=== PATIENT | male | born 1955 | race Caucasian/White ===

== ENCOUNTER 2018-01-30 08:45 | Day surgery (SDC) | payer MEDICARE, BC ==
[~2018-01-30] VITALS: Ht 180.3 cm; Wt 138.3 kg
[~2018-01-30 08:45] MED LIST: 24 HOUR ALLERG9.9 ML; ALL DAY ALLERGY10 M3 PO; BENADRYL25 MG PO; BUTALB-ACETAMI1 EACH PO; CEFUROXIME500 MG PO; DULOXETINE; DULOXETINE HCL60 MG PO; FLUOXETINE HCL60 MG PO; FUROSEMIDE20 MG PO; GABAPENTIN600 MG PO; K-TAB10 MEQ PO; LOSARTAN-HCTZ1 EAC1 PO; METHOCARBAMOL750 MG PO; NABUMETONE750 MG PO; PERCOCET 7.5-31 EACH PO; POTASSIUM CHLO20 ME1 PO; POTASSIUM CHLO20 ME2 PO; SYNTHROID200 MCG PO; SYNTHROID25 MCG PO; TYLENOL #4 PO; TYLENOL WITH C1 EAC1 PO; VITAMIN D31000 UNI1 PO; WELLBUTRIN XL300 MG PO
--- NOTE | 2018-01-30 12:22 | NUR ---
ICED WATER GIVEN. CALL LIGHT W/IN REACH.
[2018-01-30] MEDS ORDERED: KEFLEX500 MG PO (12:29)
--- NOTE | 2018-01-30 12:32 | NUR ---
01/30/18 1232 Nesha Valderrama 1128 PT ARRIVED IN PACU WIDE AWAKE COUGHING. 1133 ALBUTEROL NEB TX STARTED. PT COUGHING CONTINUOUSLY DURING THE TX. 1138 NEB TX DONE. PT ON RA WITH SATS 96%. PT COUGHING UP RED TINGED SPUTUM INTO KLEENEX. ANESTHESIA AT BEDSIDE WITH NO NEW ORDERS. 1150 PT STATES "I FEEL LIKE I'M DROWNING AND MIGHT PASS OUT FROM COUGHING, EVEN THOUGH THIS IS MY EVERYDAY ROUTINE." O2 AT 6L MASK ON PER PT COMFORT. SATS 100%. COUGHING CONTINUOUSLY. TC TO ANESTHESIA. 1200 ANESTHESIA AT BEDSIDE. COUGH DROP GIVEN TO PT. 1205 PT ONLY COUGHING OCC AFTER COUGH DROP GIVEN. OXGYEN REMOVED WITH SATS 95% ON RA. DRIP PAD CHANGED. 1215 TO DS WITH NO C/O'S.
--- NOTE | 2018-01-30 13:35 | NUR ---
LE 1325: PT UP TO BR W/RN STANDBY. PT AMBULATES WELL AND DENIES DIZZINESS. PT VOIDS AND REQ DC HOME. DC INSTRUCTIONS ARE GIVEN AND HE VERBALIZES UNDERSTANDING. PT DRESSES HIMSELF AND TRANSFERS HIMSELF TO WC AND PERSONAL VEHICLE AND DOES THAT WELL.
--- NOTE | 2018-02-06 14:26 | OR ---
[facility] [address] [place], [place] [address] Signed DATE OF OPERATION: 01/30/2018 SURGEON: Ernesto Saenz MD PREOPERATIVE DIAGNOSIS: Allergic rhinitis with inferior turbinate hypertrophy. POSTOPERATIVE DIAGNOSIS: Allergic rhinitis with inferior turbinate hypertrophy. PROCEDURES PERFORMED: Bilateral cautery submucosal inferior turbinates. ANESTHESIA: General orotracheal, CASINO ATTENDANT, [place]. PREOPERATIVE HISTORY: Mr. Gagnon is a 62-year-old male with a long history of nasal allergies, drainage, congestion, sore throat, cough, unresponsive to appropriate medications. He was taken to the operating room for the above-mentioned procedure. OPERATIVE PROCEDURE AND FINDINGS: After informed consent, the patient was taken to the operating room, placed in supine position, where a general orotracheal anesthesia was induced. The patient's procedures were verified. The patient received preoperative intranasal oxymetazoline and intravenous Ancef. Headlight speculum exam of the nasal cavity showed decongested inferior turbinates, baseline fairly hypertrophic. The left side was approached first. Headlight nasal speculum with a long handle needle point cautery, multiple submucosal passes on the inferior turbinate starting anteriorly extending all the way back posteriorly on the medial and inferior surface of the inferior turbinate. Excellent shrinkage in decongestion and improvement in the nasal airway was obtained. Same procedure on the right inferior turbinate. Bleeding was minimal, stopped, afterwards packing was placed. Equal amount of trimmed Merocel one piece each side coated with Neosporin, tied anteriorly over a pad. The pharynx was suctioned clear of blood secretions. The patient was then awakened, extubated, and transported to the recovery room in good condition. No complications. Blood loss minimal. No specimen. No drains. Packing one piece of Merocel each nostril. Electronically Signed By: ERNESTO SAENZ MD 02/06/18 1426 PATIENT NAME: DANY GAGNON OPERATIVE REPORT DATE OF : 53 REPORT #: [id number] PHYSICIAN: ERNESTO SAENZ MD PCP: ALINE CASTANEDA MD REPORT IS CONFIDENTIAL AND NOT TO BE RELEASED WITHOUT AUTHORIZATION [address] [place], [place] [address] Signed Ernesto Saenz MD GC/PRANAVL /[id number] Copies: ~ Electronically Signed By: ERNESTO SAENZ MD 02/06/18 1426 PATIENT NAME: DANY GAGNON OPERATIVE REPORT DATE OF : 53 REPORT #: [id number] PHYSICIAN: ERNESTO SAENZ MD PCP: ALINE CASTANEDA MD REPORT IS CONFIDENTIAL AND NOT TO BE RELEASED WITHOUT AUTHORIZATION
== END 2018-01-30 13:30 | disposition home or self-care (01) ==
LOC: OPS 08:45 → DS 08:45 → OPS 10:15 → DS 10:45 → OPS 13:30
PROVIDERS: Otolaryngology
PROC: 095L7ZZ Destruction of Nasal Turbinate, Via Natural or Artificial Opening (ICD-10-PCS; principal; 2018-01-30 10:15)
DX: J34.3 Hypertrophy of nasal turbinates (principal); J30.9 Allergic rhinitis, unspecified; I10 Essential (primary) hypertension; J44.9 Chronic obstructive pulmonary disease, unspecified; K58.9 Irritable bowel syndrome, unspecified; E78.00 Pure hypercholesterolemia, unspecified; G47.33 Obstructive sleep apnea (adult) (pediatric); Z79.52 Long term (current) use of systemic steroids; Z79.899 Other long term (current) drug therapy
CPT/HCPCS: 94644; J0330; J0690; J2250; J2704; J3010; J7120

== ENCOUNTER 2018-04-24 07:15 | Day surgery (SDC) | payer MEDICARE, BC ==
[~2018-04-24] VITALS: Ht 180.3 cm; Wt 137.4 kg
[~2018-04-24 07:15] MED LIST changes: +KEFLEX500 MG PO
--- NOTE | 2018-04-24 09:41 | NUR ---
04/24/18 0941 Catalina Jean 0917 PT ARRIVED TO PACU DROWSY AND TALKING. PT DENIES PAIN AND NAUSEA. PEDIATRICIAN/MEDICAL DOCTOR REPORTS INCLUDED IRREGULAR HEART RHYTHM. EKG ORDERED BY MD, RT CALLED. PLAN OF CARE DISCUSSED WITH PT. RESP EVEN AND UNLABORED. 0983 RT AT BEDSIDE FOR EKG. PT MORE AWAKE AND ROLLED OVER TO SEMI FOWLERS.
--- NOTE | 2018-04-24 11:32 | OR ---
[facility] [address] [place], [place] [address] Signed DATE OF OPERATION: 04/24/2018 SURGEON: Sarah Young MD PREOPERATIVE DIAGNOSES: 1. Possible history of Terrell's esophagus. 2. Distal esophageal dysphagia. 3. Small hiatal hernia. 4. Crohn disease. 5. Diverticulosis. 6. Colonic polyps in 2001. POSTOPERATIVE DIAGNOSES: 1. Small hiatal hernia. 2. Moderate gastroduodenitis. 3. Minimal moderate sigmoid diverticulosis. 4. Seyqghp-sv-wqywsmrg internal hemorrhoids. 5. A 5 mm polyp at 45 cm. PROCEDURES: 1. EGD with CLOtest and biopsies of the duodenum, pyloric bulb, antrum, cardia/hiatal hernia and GE junction. 2. Colonoscopy with hot biopsy. ESTIMATED BLOOD LOSS: None. INDICATIONS: Jonn is a 63-year-old gentleman asked to see me for upper and lower endoscopy. He is known to have a small hiatal hernia since 2003, with a question of Terrell's esophagus. When I rechecked him, he actually looked pretty good. We did not see any obvious Terrell's esophagus. He is known to have a history of Crohn's disease. He is known to have diverticulosis. He said some around 2001, he had a colonic polyp removed over in [place], [place]. He tells me there is no family history of colon cancer or polyps. I had met with Jonn in the office and I gave him a pamphlet on upper and lower endoscopy. We discussed the nature of 2 tests along with the risks including, but not limited to gas bloating, crampy abdominal pain, bleeding, perforation, requiring surgery, and missed diagnosis. We also discussed the need for IV conscious sedation. He has done well with Versed and fentanyl in the past. He had expressed understanding and wish to proceed. Electronically Signed By: SARAH YOUNG MD 04/24/18 1132 PATIENT NAME: JONN GAGNON OPERATIVE REPORT DATE OF : 53 REPORT #: [id number] PHYSICIAN: SARAH YOUNG MD PCP: ALINE CASTANEDA MD REPORT IS CONFIDENTIAL AND NOT TO BE RELEASED WITHOUT AUTHORIZATION [facility] [address] [place], [place] [address] Signed DESCRIPTION OF PROCEDURE: Jonn was taken into our endoscopy suite and placed in the supine semi-recumbent position. He was given divided doses of 9 mg of Versed and 200 mcg of fentanyl. He was also given preoperative antibiotic because of his knee replacements. The posterior oropharynx was anesthetized with Hurricaine spray. A bite block was utilized for the case. The adult gastroscope was introduced and advanced out into the third portion of the duodenum under direct visualization of camera without difficulty. He had some erythematous changes in the duodenum and pyloric channel. We went ahead and took a biopsy of the duodenum and a pyloric channel. The stomach showed similar findings with patchy erythematous changes throughout. We saw no ulcerations. We took a biopsy of the antrum for CLOtest as well as pathologic review. Upon retroflexion of the scope, we can see has a small hiatal hernia. There were no gastric or esophageal varices. The scope was withdrawn up through the area of the GE junction, which in general was compliant without stricture. Although, he had some granulation tissue along the area of the Z-line. We went and took a couple of biopsies of that area. We also took a couple of biopsies inside the hiatal hernia itself. We saw no obvious Terrell's esophagus. No distal esophagitis. The middle and upper esophagus were unremarkable. After this, the gas was suctioned out and the gastroscope removed. Jonn tolerated the upper endoscopy quite well. Jonn was rotated into the left lateral decubitus position. He was maintained on IV sedation with Versed and fentanyl. A digital rectal exam was performed and this was unremarkable. The adult colonoscope was introduced and advanced all around into the cecum under direct visualization of camera without difficulty. His prep was good. Just a few areas of liquid particulate stool matter, most of that was irrigated and suctioned out. The scope was slowly withdrawn. Of course, we can see his diverticula. They were minimal to moderate in size, moderate in number, and scattered about in the sigmoid colon. He had a small polyp at 45 cm. It was easily removed with the help of hot biopsy forceps. Upon retroflexion of scope in the rectum, he does have obnmoux-cf-vgxumlsy internal hemorrhoid columns. After this, the gas was suctioned out and the colonoscope removed. Jonn tolerated the procedure quite well. RECOMMENDATIONS: I will see Jonn back in my office in 7 to 14 days to review his results. He might consider an H2 modesto or proton pump inhibitor for his stomach. Also Jonn is generally in quadrigeminy, but he would convert to bigeminy and he was not conducting the 2nd heartbeat. Consequently and rather than a heart rate of 80, he was down to heart rate of 40. We are going to check EKG in our recovery room. Electronically Signed By: SARAH YOUNG MD 04/24/18 1132 PATIENT NAME: JONN GAGNON OPERATIVE REPORT DATE OF : 53 REPORT #: [id number] PHYSICIAN: SARAH YOUNG MD PCP: ALINE CASTANEDA MD REPORT IS CONFIDENTIAL AND NOT TO BE RELEASED WITHOUT AUTHORIZATION [address] [place] [address] Signed Sarah Young MD [facility] /[id number] cc: MD Aline Deluna MD Copies: SARAH YOUNG MD, JONATHAN MD ~ Electronically Signed By: SARAH YOUNG MD 04/24/18 1132 PATIENT NAME: JONN GAGNON OPERATIVE REPORT DATE OF : 53 REPORT #: [id number] PHYSICIAN: SARAH YOUNG MD PCP: ALINE CASTANEDA MD REPORT IS CONFIDENTIAL AND NOT TO BE RELEASED WITHOUT AUTHORIZATION
--- NOTE | 2018-04-25 16:20 | EKG ---
[facility] [address] [facility] [place], [place] [address] Signed Normal sinus rhythm Normal ECG When compared with ECG of 29-JAN-2018 14:19, No significant change was found Confirmed by MANDO LEWIS DO ([id number]) on 04/25/2018 4:20:27 PM Electronically Signed By: MANDO LEWIS DO 04/25/18 1620 PATIENT NAME: DANY GAGNON KING Electrocardiogram DATE OF : 53 PHYSICIAN: MANDO LEWIS DO REPORT #: [id number] REPORT IS CONFIDENTIAL AND NOT TO BE RELEASED WITHOUT AUTHORIZATION
== END 2018-04-24 10:10 | disposition home or self-care (01) ==
LOC: OPS 07:15 → DS 07:15 → OPS 08:15 → DS 08:15 → OPS 10:10
PROVIDERS: Colon & Rectal Surgery
PROC: 0DB68ZX Excision of Stomach, Via Natural or Artificial Opening Endoscopic, Diagnostic (ICD-10-PCS; 2018-04-24)
PROC: 0DB48ZX Excision of Esophagogastric Junction, Via Natural or Artificial Opening Endoscopic, Diagnostic (ICD-10-PCS; 2018-04-24)
PROC: 0DBE8ZX Excision of Large Intestine, Via Natural or Artificial Opening Endoscopic, Diagnostic (ICD-10-PCS; 2018-04-24)
PROC: 0DB98ZX Excision of Duodenum, Via Natural or Artificial Opening Endoscopic, Diagnostic (ICD-10-PCS; principal; 2018-04-24 08:15)
PROC: 0DB78ZX Excision of Stomach, Pylorus, Via Natural or Artificial Opening Endoscopic, Diagnostic (ICD-10-PCS; 2018-04-24 08:15)
DX: Z12.11 Encounter for screening for malignant neoplasm of colon (principal); K63.5 Polyp of colon; K64.8 Other hemorrhoids; K29.80 Duodenitis without bleeding; K29.50 Unspecified chronic gastritis without bleeding; K21.0 Gastro-esophageal reflux disease with esophagitis; I10 Essential (primary) hypertension; J45.909 Unspecified asthma, uncomplicated; E78.5 Hyperlipidemia, unspecified; E87.6 Hypokalemia; E66.9 Obesity, unspecified; E03.9 Hypothyroidism, unspecified; F32.9 Major depressive disorder, single episode, unspecified; G47.30 Sleep apnea, unspecified; F43.10 Post-traumatic stress disorder, unspecified; J32.9 Chronic sinusitis, unspecified; Z86.010 Personal history of colon polyps; Z88.8 Allergy status to other drugs, medicaments and biological substances; Z68.41 Body mass index [BMI] 40.0-44.9, adult; Z79.899 Other long term (current) drug therapy
CPT/HCPCS: 86677; 88305; 93005; 93010; 99153; G0500; J2250; J3010; J7120

== ENCOUNTER 2020-04-21 15:02 | Emergency (ER) | payer MEDICARE, BC ==
[~2020-04-21] VITALS: Ht 180.3 cm; Wt 136.1 kg
[~2020-04-21 15:02] MED LIST changes: +BUPROPION XL300 MG PO
--- OUTSIDE RECORDS SUMMARY | 2020-04-21 15:06 | XMS ---
PreManage Notification: DANY GAGNON Security Assistant Housekeeping Manager Events No recent Security Events currently on file CRITERIA MET - [facility] PROVIDERS ALINE CASTANEDA [facility] 07/24/2018-Current PHONE: [phone] Crystal has no Care Guidelines for this patient. EMaxi VISIT COUNT (12 MO.) 1 NATALIE Guaman TOTAL 1 NOTE: Visits indicate total known visits. ED/UCC VISIT TRACKING (12 MO.) 04/21/2020 15:03 NATALIE Fang OR TYPE: Emergency COMPLAINT: - ABDOMINAL PAIN INPATIENT VISIT TRACKING (12 MO.) No inpatient visits to display in this time frame [email or web address]
[2020-04-21] MEDS ORDERED: FUROSEMIDE40 MG PO (15:23)
== END 2020-04-21 19:05 | disposition home or self-care (01) ==
LOC: ED 15:02
DX: K59.00 Constipation, unspecified (principal); I10 Essential (primary) hypertension; K50.90 Crohn's disease, unspecified, without complications; Z79.899 Other long term (current) drug therapy
CPT/HCPCS: 74018; 74176; 80053; 81001; 83690; 83735; 85025; 96361; 96374; 96375; 96376; 99284-25; J2270; J2405; J7030

== ENCOUNTER 2020-07-27 15:42 | Emergency (ER) | payer MEDICARE, BC ==
[~2020-07-27] VITALS: Ht 180.3 cm; Wt 136.1 kg
[~2020-07-27 15:42] MED LIST changes: +FUROSEMIDE40 MG PO
--- OUTSIDE RECORDS SUMMARY | 2020-07-27 15:44 | XMS ---
PreManage Notification: DANY GAGNON Security Industrial Servicer Events No recent Security Events currently on file CRITERIA MET - [facility] C[facility] PROVIDERS ALINE CASTANEDA [facility] 07/24/2018-Current PHONE: [phone] Crystal has no Care Guidelines for this patient. EMaxi VISIT COUNT (12 MO.) 2 NATALIE Guaman TOTAL 2 NOTE: Visits indicate total known visits. ED/UCC VISIT TRACKING (12 MO.) 07/27/2020 15:42 NATALIE Fang OR TYPE: Emergency COMPLAINT: - SOB 04/21/2020 15:03 NATALIE Fang OR TYPE: Emergency COMPLAINT: - ABDOMINAL PAIN DIAGNOSES: - Crohn's disease, unspecified, without complications - Other buttermaker helper (current) drug therapy - Constipation, unspecified - Essential (primary) hypertension - Constipation, unspecified INPATIENT VISIT TRACKING (12 MO.) No inpatient visits to display in this time frame [email or web address]
[2020-07-27] MEDS ORDERED: CELECOXIB200 MG PO (16:52)
[2020-07-27] MEDS ORDERED: PREDNISONE20 MG PO (19:32)
[2020-07-27] MEDS ORDERED: ZITHROMAX250 MG PO (19:32)
--- NOTE | 2020-07-28 16:52 | EKG ---
[facility] [address] [facility] [place] [address] Signed Sinus tachycardia with occasional premature ventricular complexes Nonspecific ST and T wave abnormality Abnormal ECG When compared with ECG of 24-APR-2018 09:28, premature ventricular complexes are now present Confirmed by BARBARA CASTILLO MD ([id number]) on 07/28/2020 4:51:50 PM Electronically Signed By: BARBARA CASTILLO MD 07/28/20 1652 PATIENT NAME: DANY GAGNON KING Electrocardiogram DATE OF : 53 PHYSICIAN: BARBARA CASTILLO MD REPORT #: [id number] REPORT IS CONFIDENTIAL AND NOT TO BE RELEASED WITHOUT AUTHORIZATION
== END 2020-07-27 22:09 | disposition home or self-care (01) ==
LOC: ED 15:42
DX: U07.1 COVID-19 (principal); J12.89 Other viral pneumonia; I10 Essential (primary) hypertension; Z79.899 Other long term (current) drug therapy
CPT/HCPCS: 71045; 71260; 80053; 83605; 83735; 84484; 85025; 85379; 93005; 93010; 99285-25; C9803; J7030; Q9967; U0003